=== PATIENT | male | born 1995 | race Two or more races ===

== ENCOUNTER 2020-06-20 19:29 | Emergency (ER) | payer MEDICAID ==
[~2020-06-20] VITALS: Ht 188 cm; Wt 89.5 kg
[2020-06-20 19:45] VITALS: BP 118/72
== END 2020-06-20 21:22 | disposition home or self-care (01) ==
LOC: ER 19:29
DX: S90.111A Contusion of right great toe without damage to nail, initial encounter (principal); M79.674 Pain in right toe(s); X58.XXXA Exposure to other specified factors, initial encounter; Y93.89 Activity, other specified; Y92.89 Other specified places as the place of occurrence of the external cause; Y99.8 Other external cause status
CPT/HCPCS: 73660; 99283

== ENCOUNTER 2023-02-21 14:14 | Emergency (ER) | payer MEDICAID ==
[~2023-02-21] VITALS: Ht 188 cm; Wt 90.9 kg
[2023-02-21 14:30] VITALS: BP 121/69; PULSE 71; RESP 18; O2SAT 98
[2023-02-21] MEDS ORDERED: LIDOcaine 1% 30ml preserv. free vial IJ ONE (15:25)
[2023-02-21] MEDS ORDERED: CEPH-585 PO (15:46)
[2023-02-21 16:17] VITALS: TEMP 98.1
== END 2023-02-21 16:21 | disposition home or self-care (01) ==
LOC: ER 14:14
DX: L03.032 Cellulitis of left toe (principal); Z79.2 Long term (current) use of antibiotics
CPT/HCPCS: 99283; A6449